=== PATIENT | male | born 1950 ===

== ENCOUNTER 2020-12-26 12:55 | Outpatient (CLI) | payer OTHER | END 2020-12-26 13:18 | disposition home or self-care (01) | LOC: MRI 12:55 → EDBD 12:55 → MRI 13:18 | PROVIDERS: ATTEND Orthopaedic Surgery | DX: M17.11 Unilateral primary osteoarthritis, right knee (principal); M25.461 Effusion, right knee; M25.561 Pain in right knee; M25.562 Pain in left knee | CPT/HCPCS: 73718 ==

== ENCOUNTER 2021-06-21 11:34 | Outpatient (CLI) | payer OTHER | END 2021-06-21 11:35 | disposition home or self-care (01) | LOC: RAD 11:34 | PROVIDERS: ATTEND Orthopaedic Surgery | DX: M25.551 Pain in right hip (principal); M25.552 Pain in left hip; M25.561 Pain in right knee; M25.562 Pain in left knee ==

== ENCOUNTER 2023-01-17 09:45 | Outpatient (CLI) | payer OTHER | END 2023-01-17 10:10 | disposition home or self-care (01) | LOC: MRI 09:45 | PROVIDERS: ATTEND Orthopaedic Surgery | DX: S83.200A Bucket-handle tear of unspecified meniscus, current injury, right knee, initial encounter (principal); M25.551 Pain in right hip; M25.552 Pain in left hip; M25.561 Pain in right knee; M25.562 Pain in left knee | CPT/HCPCS: 73721 ==

== ENCOUNTER 2023-11-14 09:54 | Outpatient (CLI) | payer OTHER | END 2023-11-14 10:04 | disposition home or self-care (01) | LOC: MRI 09:54 | PROVIDERS: ATTEND Orthopaedic Surgery | DX: M54.2 Cervicalgia (principal); M54.50 Low back pain, unspecified | CPT/HCPCS: 72141; 72146; 72148 ==